=== PATIENT | female | born 1950 | race Hispanic/Latino ===

== ENCOUNTER → 2020-06-13 | Outpatient (CLI) | payer OTHER, MEDICARE | END | disposition home or self-care (01) | LOC: OIH 14:37 | PROVIDERS: ATTEND Family Medicine | DX: M25.562 Pain in left knee (principal) | CPT/HCPCS: 73562 ==

== ENCOUNTER → 2021-02-15 | Outpatient (CLI) | payer MEDICARE | END | disposition home or self-care (01) | LOC: OIH 11:44 | PROVIDERS: ATTEND Family Medicine | DX: M47.817 Spondylosis without myelopathy or radiculopathy, lumbosacral region (principal); M41.87 Other forms of scoliosis, lumbosacral region | CPT/HCPCS: 72100 ==

== ENCOUNTER → 2023-05-15 | Outpatient (CLI) | payer OTHER, MEDICARE | END | disposition home or self-care (01) | LOC: RAH 13:40 | PROVIDERS: ATTEND Family Medicine | DX: Z12.31 Encounter for screening mammogram for malignant neoplasm of breast (principal) | CPT/HCPCS: 77067 ==

== ENCOUNTER → 2024-05-17 | Outpatient (CLI) | payer OTHER, MEDICARE | END | disposition home or self-care (01) | LOC: RAH 09:55 | PROVIDERS: ATTEND Family Medicine | DX: Z12.31 Encounter for screening mammogram for malignant neoplasm of breast (principal); R92.323 Mammographic fibroglandular density, bilateral breasts; R92.30 Dense breasts, unspecified | CPT/HCPCS: 77067 ==

== ENCOUNTER → 2024-12-15 | Outpatient (CLI) | payer OTHER, MEDICARE ==
--- NOTE | 2024-12-15 12:27 | HMCIMG ---
RIGHT KNEE RADIOGRAPHS - 3 VIEWS INDICATION: Pain COMPARISON: None FINDINGS: AP, lateral, and oblique views. No acute fracture or dislocation identified. Mild tricompartmental right knee osteoarthropathy includes joint space narrowing, remodeling of the articular surfaces, and mild marginal osteophyte formation. Trace suprapatellar bursal fluid. Overlying soft tissues appear normal. IMPRESSION: Trace suprapatellar bursal fluid and mild tricompartmental right knee osteoarthropathy without evidence for fracture or dislocation.
== END | disposition home or self-care (01) ==
LOC: RAH 11:37
PROVIDERS: ATTEND Family Medicine
DX: M17.11 Unilateral primary osteoarthritis, right knee (principal); M25.861 Other specified joint disorders, right knee; M25.761 Osteophyte, right knee; M25.561 Pain in right knee
CPT/HCPCS: 73562

== ENCOUNTER → 2025-05-20 | Outpatient (CLI) | payer MEDICARE, MEDICAID | END | disposition home or self-care (01) | LOC: RAH 13:43 | PROVIDERS: ATTEND Family Medicine | DX: Z12.31 Encounter for screening mammogram for malignant neoplasm of breast (principal) | CPT/HCPCS: 77067 ==